=== PATIENT | male | born 1990 ===

== ENCOUNTER 2017-12-27 13:44 | Observation (INO) | payer OTHER ==
[2017-12-27] MEDS ORDERED: SODIUM CHLORIDE 0.9% 1,000 ML IV STA (14:10)
--- NOTE | 2017-12-27 14:18 | ED ---
General Adult HPI - General Chief complaint: Chest Pain Stated complaint: Chest Pain Time Seen by Provider: 12/27/17 14:01 Source: patient, family, police, EMS, motor mechanic, RN notes reviewed Mode of arrival: EMS Limitations: language barrier - History of Present Illness Initial comments: Patient is a pleasant 27-year-old male presenting to the emergency department with custody of immigration officers. Patient is a [place] refugee. Patient was believed to be returning to the country from [place]. Patient was undergoing questioning by the officers. Patient started to develop chest discomfort and then had a possible syncopal episode. Patient is alert and appropriate at this time. Patient states only minimal discomfort at this time. Patient states he has had similar symptoms previously. Patient does speak limited Mauritian. Patient does appear to understand most of what is asked of him. Family is present however does not speak Mauritian. Patient denies dyspnea. Patient denies headache. Patient denies weakness. - Related Data Home Medications Medication Instructions Recorded Confirmed No Known Home Medications 12/27/17 12/27/17 Allergies Allergy/AdvReac Type Severity Reaction Status Date / Time No Known Allergies Allergy Verified 12/27/17 14:44 Review of Systems ROS Statement: Those systems with pertinent positive or pertinent negative responses have been documented in the HPI. ROS Other: All systems not noted in ROS Statement are negative. Constitutional: Denies: fever Eyes: Denies: eye pain ENT: Denies: ear pain Respiratory: Denies: cough Cardiovascular: Reports: chest pain (Near resolved) Endocrine: Denies: fatigue Gastrointestinal: Denies: abdominal pain Genitourinary: Denies: dysuria Musculoskeletal: Denies: back pain Skin: Denies: rash Neurological: Denies: weakness General Exam Limitations: language barrier General appearance: alert, in no apparent distress Head exam: Present: atraumatic, normocephalic Eye exam: Present: normal appearance, PERRL, EOMI. Absent: nystagmus ENT exam: Present: normal oropharynx Neck exam: Present: normal inspection Respiratory exam: Present: normal lung sounds bilaterally. Absent: chest wall tenderness Cardiovascular Exam: Present: regular rate, normal rhythm Expanded Peripheral pulses: 2+: Radial (R), Radial (L), Dorsalis Pedis (R), Dorsalis Pedis (L) GI/Abdominal exam: Present: soft. Absent: tenderness Extremities exam: Present: normal inspection. Absent: pedal edema, calf tenderness Neurological exam: Present: alert, CN II-XII intact. Absent: motor sensory deficit Expanded Neurological exam: Present: protecting the airway, other (Language barrier with orientation of year.) Cranial nerves: EOM's Intact: Normal, Facial Sensation: Normal Sensory exam: Upper Extremity Light Touch: Normal, Lower Extremity Light Touch: Normal Motor strength exam: RUE: 5, LUE: 5, RLE: 5, LLE: 5 Psychiatric exam: Present: normal affect, normal mood Skin exam: Present: normal color Course Vital Signs 12/27/17 12/27/17 13:54 15:08 Temperature 99.3 F Pulse Rate 60 56 L Respiratory 16 18 Rate Blood Pressure 122/71 112/57 O2 Sat by Pulse 99 100 Oximetry EKG Findings - EKG Comments: EKG Findings:: Normal sinus rhythm 62. SC 1:30. QRS 108. QT 406. QTc 412. Normal axis. Incomplete right bundle-branch block. No acute ST change. Medical Decision Making - Medical Decision Making Patient reevaluated and resting comfortably in bed. Patient without complaints at this time. Patient is updated on results and plan. Patient does find knowledge understanding. Case was earlier discussed with Dr. Ewing who did review the EKG. He does recommend holding for observation. Dr. Dove has been paged for hospital admission. - Lab Data Result diagrams: 12/27/17 14:08 12/27/17 14:08 Lab Results 12/27/17 12/27/17 12/27/17 Range/Units 14:08 14:08 14:08 WBC 4.8 (3.8-10.6) k/uL RBC 5.35 (4.30-5.90) m/uL Hgb 15.1 (13.0-17.5) gm/dL Hct 43.1 (39.0-53.0) % MCV 80.5 (80.0-100.0) fL MCH 28.2 (25.0-35.0) pg MCHC 35.1 (31.0-37.0) g/dL RDW 13.0 (11.5-15.5) % Plt Count 237 (150-450) k/uL Neutrophils % 69 % Lymphocytes % 23 % Monocytes % 6 % Eosinophils % 1 % Basophils % 0 % Neutrophils # 3.3 (1.3-7.7) k/uL Lymphocytes # 1.1 (1.0-4.8) k/uL Monocytes # 0.3 (0-1.0) k/uL Eosinophils # 0.0 (0-0.7) k/uL Basophils # 0.0 (0-0.2) k/uL PT (9.0-12.0) sec INR (<1.2) APTT (22.0-30.0) sec D-Dimer (<0.60) mg/L FEU Sodium 142 (137-145) mmol/L Potassium 3.1 L (3.5-5.1) mmol/L Chloride 106 (98-107) mmol/L Carbon Dioxide 23 (22-30) mmol/L Anion Gap 13 mmol/L BUN 12 (9-20) mg/dL Creatinine 0.67 (0.66-1.25) mg/dL Est GFR (CKD-EPI)AfAm >90 (>60 ml/min/1.73 sqM) Est GFR (CKD-EPI)NonAf >90 (>60 ml/min/1.73 sqM) Glucose 143 H (74-99) mg/dL Calcium 9.6 (8.4-10.2) mg/dL Total Bilirubin 1.1 (0.2-1.3) mg/dL AST 37 (17-59) U/L ALT 53 (21-72) U/L Alkaline Phosphatase 70 (38-126) U/L Total Creatine Kinase 78 (55-170) U/L CK-MB (CK-2) 0.6 (0.0-2.4) ng/mL CK-MB (CK-2) Rel Index 0.8 Troponin I <0.012 (0.000-0.034) ng/mL Total Protein 7.3 (6.3-8.2) g/dL Albumin 4.5 (3.5-5.0) g/dL Urine Color Urine Appearance (Clear) Urine pH (5.0-8.0) Ur Specific [place] (1.001-1.035) Urine Protein (Negative) Urine Glucose (UA) (Negative) Urine Ketones (Negative) Urine Blood (Negative) Urine Nitrite (Negative) Urine Bilirubin (Negative) Urine Urobilinogen (<2.0) mg/dL Ur Leukocyte Esterase (Negative) 07/14/18 07/14/18 Range/Units 14:08 14:45 WBC (3.8-10.6) k/uL RBC (4.30-5.90) m/uL Hgb (13.0-17.5) gm/dL Hct (39.0-53.0) % MCV (80.0-100.0) fL MCH (25.0-35.0) pg MCHC (31.0-37.0) g/dL RDW (11.5-15.5) % Plt Count (150-450) k/uL Neutrophils % % Lymphocytes % % Monocytes % % Eosinophils % % Basophils % % Neutrophils # (1.3-7.7) k/uL Lymphocytes # (1.0-4.8) k/uL Monocytes # (0-1.0) k/uL Eosinophils # (0-0.7) k/uL Basophils # (0-0.2) k/uL PT 10.7 (9.0-12.0) sec INR 1.1 (<1.2) APTT 23.5 (22.0-30.0) sec D-Dimer <0.17 (<0.60) mg/L FEU Sodium (137-145) mmol/L Potassium (3.5-5.1) mmol/L Chloride (98-107) mmol/L Carbon Dioxide (22-30) mmol/L Anion Gap mmol/L BUN (9-20) mg/dL Creatinine (0.66-1.25) mg/dL Est GFR (CKD-EPI)AfAm (>60 ml/min/1.73 sqM) Est GFR (CKD-EPI)NonAf (>60 ml/min/1.73 sqM) Glucose (74-99) mg/dL Calcium (8.4-10.2) mg/dL Total Bilirubin (0.2-1.3) mg/dL AST (17-59) U/L ALT (21-72) U/L Alkaline Phosphatase (38-126) U/L Total Creatine Kinase (55-170) U/L CK-MB (CK-2) (0.0-2.4) ng/mL CK-MB (CK-2) Rel Index Troponin I (0.000-0.034) ng/mL Total Protein (6.3-8.2) g/dL Albumin (3.5-5.0) g/dL Urine Color Colorless Urine Appearance Clear (Clear) Urine pH 7.0 (5.0-8.0) Ur Specific [place] 1.002 (1.001-1.035) Urine Protein Negative (Negative) Urine Glucose (UA) Negative (Negative) Urine Ketones Trace H (Negative) Urine Blood Negative (Negative) Urine Nitrite Negative (Negative) Urine Bilirubin Negative (Negative) Urine Urobilinogen <2.0 (<2.0) mg/dL Ur Leukocyte Esterase Negative (Negative) - Radiology Data Interpreted by me: Chest x-ray interpreted by myself shows no acute process. Radiology interpretation still pending. Disposition Clinical Impression: Chest pain, Syncope Disposition: ADMITTED IP TO THIS HOSP Is patient prescribed a controlled substance at d/c from ED?: No Referrals: None,Stated [Primary Care Provider] - 1-2 days Decision Time: 15:19
[2017-12-27 14:19] LABS: Basophils % (A) 0 %; Eosinophils % (A) 1 %; HCT 43.1 % (39.0-53.0); HGB 15.1 gm/dL (13.0-17.5); Lymphocytes # (A) 1.1 k/uL (1.0-4.8); Lymphocytes % (A) 23 %; MCH 28.2 pg (25.0-35.0); MCHC 35.1 g/dL (31.0-37.0); MCV 80.5 fL (80.0-100.0); Mean Platelet Volume 6.6; Monocytes # (A) 0.3 k/uL (0-1.0); Monocytes % (A) 6 %; Neutrophils # (A) 3.3 k/uL (1.3-7.7); Neutrophils % (A) 69 %; Platelet Count 237 k/uL (150-450); RBC 5.35 m/uL (4.30-5.90); WBC 4.8 k/uL (3.8-10.6)
[2017-12-27 14:28] LABS: ALT 53 U/L (21-72); AST 37 U/L (17-59); Albumin 4.5 g/dL (3.5-5.0); Alkaline Phosphatase 70 U/L (38-126); Anion Gap 13 mmol/L; Blood Urea Nitrogen 12 mg/dL (9-20); Calcium 9.6 mg/dL (8.4-10.2); Carbon Dioxide 23 mmol/L (22-30); Chloride 106 mmol/L (98-107); Glucose 143 mg/dL (74-99); Potassium 3.1 mmol/L (3.5-5.1); Sodium 142 mmol/L (137-145); Total Bilirubin 1.1 mg/dL (0.2-1.3); Total Protein 7.3 g/dL (6.3-8.2)
[2017-12-27 14:33] LABS: D-Dimer <0.17 mg/L FEU (<0.60); INR 1.1 (<1.2); Partial Thromboplastin Time 23.5 sec (22.0-30.0); Prothrombin Time 10.7 sec (9.0-12.0)
[2017-12-27 14:39] LABS: Creatine Kinase 78 U/L (55-170)
[2017-12-27 14:52] LABS: Creatine Kinase MB 0.6 ng/mL (0.0-2.4); Troponin I <0.012 ng/mL (0.000-0.034)
[2017-12-27 14:55] LABS: Appearance,Urine Clear (Clear); Bilirubin,Urine Negative (Negative); Blood,Urine Negative (Negative); Color,Urine Colorless; Glucose,Urine (UA) Negative (Negative); Ketones,Urine Trace (Negative); Leukocyte Esterase,Urine Negative (Negative); Nitrite,Urine Negative (Negative); Protein,Urine Negative (Negative); Specific Gravity,Urine 1.002 (1.001-1.035); Urobilinogen,Urine <2.0 mg/dL (<2.0)
[2017-12-27] MEDS ORDERED: POTASSIUM CHLORIDE ER 20 MEQ TAB.ER PO STA (15:00)
--- NOTE | 2017-12-27 15:17 | XR ---
EXAMINATION TYPE: XR chest 2V DATE OF EXAM: 12/27/2017 COMPARISON: NONE HISTORY: Syncope and weakness. TECHNIQUE: Frontal and lateral views of the chest are obtained. FINDINGS: There is no focal air space opacity, pleural effusion, or pneumothorax seen. The cardiac silhouette size is within normal limits. The osseous structures are intact. IMPRESSION: No acute cardiopulmonary process.
[2017-12-27] MEDS ORDERED: NITROGLYCERIN SL TABS 0.4 MG TAB SUBLINGUAL PRN (15:20)
[2017-12-27] MEDS ORDERED: ASPIRIN 81 MG PO STA (15:20)
[2017-12-27 15:57] VITALS: RESP 16
[2017-12-27 16:15] VITALS: BP 111/72; PULSE 51; TEMP 98.2
[2017-12-27] MEDS ORDERED: NALOXONE 0.4 MG/ML 1 ML VIAL IV PRN (17:12)
--- NOTE | 2017-12-27 17:26 | P.HPIM ---
History of Present Illness H&P Date: 12/27/17 Chief Complaint: Chest pain 27-year-old male presented to the emergency department with custody of immigration officers caught him and he was trying to cross moved to [place]. While patient was undergoing questioning by the officers he started to develop chest discomfort, palpitations, dizziness, severe occipital headaches as well as legs and arm numbness. He stated he wasn't taking his body. No shortness of breath. Chest pain is currently resolved. No focal numbness or weakness. No slurred speech, no blurry or double vision. Review of Systems 12 point review system performed, negative except HPI Past Medical History Past Medical History: No Reported History History of Any Multi-Drug Resistant Organisms: None Reported Past Surgical History: No Surgical Hx Reported Past Anesthesia/Blood Transfusion Reactions: No Reported Reaction Past Psychological History: No Psychological Hx Reported Smoking Status: Current some day smoker - Past Family History Mother History Unknown: Yes Father History Unknown: Yes Medications and Allergies Home Medications Medication Instructions Recorded Confirmed Type No Known Home Medications 12/27/17 12/27/17 History Allergies Allergy/AdvReac Type Severity Reaction Status Date / Time No Known Allergies Allergy Verified 12/27/17 14:44 Physical Exam Vitals: Vital Signs Temp Pulse Pulse Resp BP BP Pulse Ox 12/27/17 16:13 98.2 F 51 L 16 111/72 99 12/27/17 15:56 97.7 F 54 L 16 112/66 100 12/27/17 15:08 56 L 18 112/57 100 12/27/17 13:54 99.3 F 60 16 122/71 99 Intake and Output 12/27/17 12/27/17 12/27/17 06:59 14:59 22:59 Intake Total 200 Balance 200 Intake: Oral 200 Other: # Voids 2 Weight 72.575 kg Constitutional: No acute distress, conversant, pleasant Eyes:Anicteric sclerae, moist conjunctiva, no lid-lag, PERRLA, ENMT: Oropharynx clear, no erythema, exudates Neck: Supple, FROM, no masses, or JVD, No carotid bruits, No thyromegaly Lungs: Clear to auscultation, Clear to percussion, Normal respiratory effort, no accessory muscle use Cardiovascular: Heart regular in rate and rhythm, No murmurs, gallops, or rubs, No peripheral edema Abdominal: Soft, Nontender, no guarding, rebound or rigidity, Normoactive bowel sounds, No hepatomegaly, No splenomegaly, No palpable mass Skin: Normal temperature, tone, texture, turgor, no induration, No subcutaneous nodules, No rash, lesions, No ulcers Extremities: No digital cyanosis, No clubbing, Pedal pulses intact and symmetrical, Radial pulses intact and symmetrical, No calf tenderness Psychiatric: Alert and oriented to person, place and time, appropriate affect, intact judgement Neuro: Muscles Strength 5/5 in all 4 extremities, Sensation to light touch grossly present throughout, Cranial nerves II-XII grossly intact, no focal sensory deficits Results CBC & Chem 7: 12/27/17 14:08 12/27/17 14:08 Labs: Abnormal Lab Results - Last 24 Hours (Table) 12/27/17 12/27/17 Range/Units 14:08 14:45 Potassium 3.1 L (3.5-5.1) mmol/L Glucose 143 H (74-99) mg/dL Urine Ketones Trace H (Negative) Thrombosis Risk Factor Assmnt - Choose All That Apply Any of the Below Risk Factors Present?: No Other Risk Factors: No Other congenital or acquired thrombophilia - If yes, enter type in comment: No Thrombosis Risk Factor Assessment Level: Very Low Risk Assessment and Plan Plan: Acute chest pain and palpitations Likely secondary to panic attack EKG reviewed, no acute changes Troponin and d-dimer negative, no acute PR or PE Health maintenance CBC and CMP checked, within normal limits.
--- NOTE | 2017-12-27 17:28 | P.DS ---
Providers Date of admission: 12/27/17 15:20 Expected date of discharge: 12/27/17 Attending physician: Mikayla Jordan MD Consults: 12/27/17 15:20 Consult Physician Urgent Consulting Provider: Calderon Ewing Consult Reason/Comments: cp, syncope Do you want consulting provider notified?: Already Contacted Primary care physician: Stated None Hospital Course: 27-year-old male presented to the emergency department with custody of immigration officers caught him and he was trying to cross moved to [place]. While patient was undergoing questioning by the officers he started to develop chest discomfort, palpitations, dizziness, severe occipital headaches as well as legs and arm numbness. He stated he wasn't taking his body. No shortness of breath. Chest pain is currently resolved. No focal numbness or weakness. No slurred speech, no blurry or double vision. In the emergency department patient had CBC, CMP done and those were within normal limits. He was slightly bradycardic but his blood pressure was within normal limits. Chest x-ray, d-dimer and troponin are all within normal limits. EKG was reviewed, no acute changes. Case was discussed with cardiology Dr. Ewing who felt that the patient can be discharged from his perspective. Patient be discharged home in stable condition. Discharge diagnoses Panic attack Presyncope secondary to above Atypical chest pain Plan - Discharge Summary Discharge Rx Participant: No New Discharge Prescriptions: Continue No Known Home Medications Discharge Medication List No Known Home Medications 12/27/17 [History] Follow up Appointment(s)/Referral(s): None,Stated [Primary Care Provider] - 1-2 days Patient Instructions/Handouts: Chest Pain (DC)
[2017-12-27] MEDS ORDERED: NITROGLYCERIN OINT 1 INCH/GM PACKET TOPICAL SCH (18:00)
[2017-12-28] MEDS ORDERED: ASPIRIN 325 MG TAB PO SCH (09:00)
== END 2017-12-27 17:30 | disposition home or self-care (01) ==
LOC: EC 13:44 → 3SUR 15:20
PROVIDERS: ADMIT Internal Medicine; ATTEND Internal Medicine
DX: F41.0 Panic disorder [episodic paroxysmal anxiety] (principal); R51 Headache; F17.200 Nicotine dependence, unspecified, uncomplicated; R55 Syncope and collapse
CPT/HCPCS: 96360; 99285; 36415; 93005; 85379; 80053; 82550; 82553; 84484; 85025; 85610; 85730; 81003; 71046; G0378